=== PATIENT | female | born 1960 | race Caucasian/White ===

== ENCOUNTER 2021-01-23 12:31 | Outpatient (CLI) | payer BC, SELFPAY ==
--- NOTE | ~2021-01-23 | XR_ITS ---
XR knee RT min 4V 01/23/2021 13:07 Indication: Right knee pain Procedure: 4 views right knee Comparison: No prior studies for comparison. Findings: There is severe tricompartment osteoarthritis of the right knee. Small joint effusion. No a cute fracture or traumatic malalignment. Impression: 1: Severe osteoarthritis of the right knee. Reviewed, dictated and finalized at location A. PULLER Impression: 1: Severe osteoarthritis of the right knee.
--- NOTE | ~2021-01-23 | XR_ITS ---
XR knee LT min 4V 01/23/2021 13:07 Indication: Left knee pain Procedure: 4 views left knee Comparison: No prior studies for comparison. Findings: There is severe osteoarthritis of the left knee. No acute fracture, subluxation or dislocat ion. No significant joint effusion. No foreign bodies. Impression: 1: Severe osteoarthritis of the left knee. Reviewed, dictated and finalized at location A. NCT FACULTY MATHEMATICS DEPARTMENT Impression: 1: Severe osteoarthritis of the left knee.
== END 2021-01-23 12:32 | disposition home or self-care (01) ==
LOC: ANHIMG 12:36
PROVIDERS: PCP Internal Medicine; Visit Provider Neurological Surgery
DX: M17.0 Bilateral primary osteoarthritis of knee (principal)
CPT/HCPCS: 73564

== ENCOUNTER 2021-05-05 16:13 | Outpatient (CLI) | payer BC, SELFPAY ==
--- NOTE | ~2021-05-05 | MM_ITS ---
EXAMINATION: MM screening erika BI w jarrod HISTORY: Screening mammogram TECHNIQUE: Craniocaudal and mediolateral oblique 3-D tomosynthesis images were obtained and synthetic 2-D images were generated. CAD analysis was submitted and interpreted. COMPARISON: 03/04/2005 left mammogram and 02/17/2005 bilateral screening mammogram BREAST PARENCHYMAL COMPOSITION: The breasts are almost entirely fatty. FINDINGS: There is a focal small area of architectural distortion associated with a surgical clip in the inner aspect of the upper outer quadrant left breast due to prior surgical resection of breast ma lignancy. Status post left axillary node dissection. There is no evidence of suspicious mass, calcification, or architectural distortion to suggest malign john in either breast. There has been no suspicious interval change. IMPRESSION: 1. No mammographic evidence of malignancy; status post left partial mastectomy and left axillary node dissection for prior breast cancer. 2. Recommend routine screening mammography in one year. BI-RADS Category 2: Benign finding(s). Reviewed, dictated and finalized at location A. SICHORD MAKER
== END 2021-05-05 16:14 | disposition home or self-care (01) ==
LOC: ANHIMG 16:16
PROVIDERS: PCP Internal Medicine; Visit Provider Internal Medicine
DX: Z12.31 Encounter for screening mammogram for malignant neoplasm of breast (principal)
CPT/HCPCS: 77063; 77067

== ENCOUNTER 2022-05-27 07:40 | Outpatient (CLI) | payer BC, SELFPAY ==
--- NOTE | ~2022-05-27 | DEXA_ITS ---
Bone Density Report Name: JHONATAN CLARK Age: 61 Sex: Female Ethnicity: White Date of : 1960 Indication: postmenopausal; screening for osteoporosis; height loss; cancer; hysterectomy; Referring Provider: HANNAH, RAKESH Calderon Study: Bone densitometry was performed. Exam Date: May 27, 2022 Accession number: [id number] Bone Density: Region BMD T-score Z-score Classification AP Spine(L1-L4) 1.074 0.2 1.6 Normal Femoral Neck (Left) 0.740 -1.0 0.3 Normal Total Hip (Left) 1.046 0.9 1.8 Normal Femoral Neck (Right) 0.788 -0.5 0.7 Normal Total Hip (Right) 1.077 1.1 2.0 Normal Total Hip Mean 1.061 1.0 1.9 Normal World Health Organization criteria for BMD impression classify patients as: Normal (T-score at or above -1.0), Osteopenia (T-score between -1.0 and -2.5), or Osteoporosis (T-score at or below -2.5). 10-year Fracture Risk: FRAX not reported because: All T-scores for Spine Total, Hip Total, Femoral Neck at or above -1.0 Clinical Information Provided by Patient: Smokes Has the following medical conditions: Cancer, Hysterectomy Patient maximum height was 62 Menopause Age: 51 No regular weight bearing exercise Does not regularly consume dairy products Drinks caffeinated beverages Onset of menses at age 12 Number of children 0 Impression: The patient has normal bone mass. The patient has risk factors, including: smoking. Discussion: BONE DENSITY IS ABOVE THE MINIMUM DESIRABLE LEVEL AT ALL SKELETAL SITES TESTED. This patient?s bone mineral density is above the minimum desirable level (T-score -1.0 or better) at all sites measured. The patient should follow a healthful lifestyle (good nutrition with adequate calcium and vitamin D, and appropriate weight-bearing exercise). Follow-Up: Consider repeating this study in 5 years or sooner if there is some new clinical indication. Reported by: ISIS on 05/27/2022 8:18:00 AM. Reviewed, dictated and finalized at location AAmerico HOLDER
== END 2022-05-27 07:41 | disposition home or self-care (01) ==
PROVIDERS: PCP Internal Medicine; Visit Provider Internal Medicine
DX: Z78.0 Asymptomatic menopausal state (principal)
CPT/HCPCS: 77080

== ENCOUNTER 2023-09-12 13:10 | Outpatient (CLI) | payer BC, SELFPAY ==
--- NOTE | ~2023-09-12 | MM_ITS ---
EXAMINATION: MM screening erika BI w jarrod HISTORY: Screening mammogram TECHNIQUE: Craniocaudal and mediolateral oblique 3-D tomosynthesis images were obtained and synthetic 2-D images were generated. CAD analysis was submitted and interpreted. COMPARISON: 05/05/2021 BREAST PARENCHYMAL COMPOSITION:Not Dense. The breasts are almost entirely fatty FINDINGS: No suspicious mass, calcification, or architectural distortion are identified in either hina ast to suggest malignancy. There has been no suspicious interval change. IMPRESSION: No mammographic evidence of malignancy. Recommend routine screening mammography in one year. BI-RADS Category 1: Negative Reviewed, dictated and finalized at location .
== END 2023-09-12 13:11 | disposition home or self-care (01) ==
LOC: ANHIMG 13:14
PROVIDERS: PCP Internal Medicine; Visit Provider Obstetrics & Gynecology
DX: Z12.31 Encounter for screening mammogram for malignant neoplasm of breast (principal)
CPT/HCPCS: 77063; 77067

== ENCOUNTER 2024-02-01 15:50 | Outpatient (CLI) | payer BC, SELFPAY ==
--- NOTE | ~2024-02-01 | XR_ITS ---
EXAMINATION: XR hip RT 2V w AP pelvis DATE: 02/01/2024 16:25 INDICATION: Right hip pain. TECHNIQUE: An anteroposterior view of the pelvis and 2 views of right hip were obtained. COMPARISON: None. FINDINGS: There is 5 degrees dextrocurvature of lumbar spine. No fracture. There is mild osteoarthrit is of the hips. IMPRESSION: 1. Mild osteoarthritis of the hips. Reviewed, dictated and finalized at location A. TUTOR
--- NOTE | ~2024-02-01 | XR_ITS ---
EXAMINATION: XR knee RT 3V DATE: 02/01/2024 16:25 INDICATION: Right knee pain. TECHNIQUE: 3 views of right knee were obtained. COMPARISON: Right knee radiographs 01/23/2021 FINDINGS: There is varus angulation at the knee. No fracture. There is severe tricompartmental osteoa rthritis. No knee joint effusion. IMPRESSION: 1. Severe right knee osteoarthritis. Reviewed, dictated and finalized at location A. SISTOR TESTER
== END 2024-02-01 15:51 | disposition home or self-care (01) ==
LOC: ANHIMG 15:54
PROVIDERS: PCP Internal Medicine; Visit Provider Internal Medicine
DX: M16.0 Bilateral primary osteoarthritis of hip (principal); M17.11 Unilateral primary osteoarthritis, right knee
CPT/HCPCS: 73502; 73562

== ENCOUNTER 2025-01-11 14:34 | Outpatient (CLI) | payer BC, SELFPAY ==
--- OUTSIDE RECORDS SUMMARY | 2009-12-04 10:45 | XMS_ITS | Continuity of Care Document ---
Author Organization [facility] Address [address] [place] [address] Phone Care Team Providers Care Meteorological Engineer Name Role Phone Castañeda OD, Issa Unavailable Unavailable Procedures Procedure Date Office/outpatient Visit, [facility] Advance Directives Directive Yes / No Effective Date File Name No Information Encounters Encounter Description Practice Location Reason(s) For Visit Diagnoses Date Provider Providers Copied on Encounter Office/outpat ient Visit, [facility], [address], [place], [place], [id number], [place] tel:[phone] [facility] No Information [phone] Castañeda OD Issa. [address] , [address], [place], [address], [place]. tel:[phone] Family History Family Member Type Diagnosis Age At Onset No Information Payers Payer name Insurance type Covered alliance party ID Authoriza tisabino(s) [facility] Commercial CI [id number] Social History Type Description Quantity Date Captured Comments Sex Male Smoking Status No Information Chief Complaint And Reason For Visit No Information Reason For Referral Reason For Referral No Information History Of Present Illness Encounter Date Complaint History Of Prese nt Illness No Information Functional Status Date Functional Assessmen t No Information Instructions Date Instruction Additional Infor mation No Information Assessments Type Assessment Date No Information Patient Care Teams Name Effective Dates (start - stop) Status Members No Information
--- NOTE | ~2025-01-11 | MM_ITS ---
EXAMINATION: MM screening [facility] BI w jarrod HISTORY: Screening TECHNIQUE: Craniocaudal and mediolateral oblique 3-D tomosynthesis images were obtained and synthetic 2-D images were generated. CAD analysis was submitted and interpreted. COMPARISON: Comparison to multiple prior studies sequentially, with oldest reviewed study dated 05/05/2021. BREAST PARENCHYMAL COMPOSITION: Not dense: There are scattered areas of fibroglandular density. FINDINGS: There is no evidence of suspicious mass, calcification, or architectural distortion to suggest malignancy in either breast. There has been no suspicious interval change. IMPRESSION: 1. No mammographic evidence of malignancy. 2. Recommend routine screening mammography in one year. BI-RADS Category 1: Negative Reviewed, dictated and finalized at location B.
--- OUTSIDE RECORDS SUMMARY | 2025-01-11 14:38 | XMS_ITS | Clinical Summary ---
Author Organization [employer] Administrative Offices Address [address] [place] [address] Care Team Providers Care Chemical Blender Name Role Phone Uriel Jain MD Primary Care Provider [phone] Allergies Active Allergy Reactions Criticality Noted Date Comments Morphine Hypotension High 09/23/2016 Medications cholecalcifer ol, Vitamin D3, (VITAMIN D3) 2,000 unit Tablet Take 2,000 Units by mouth daily. Active cholecalcifer ol 50,000 unit Capsule Take by mouth every 7 days. Active CYANOCOBALAMI N, VITAMIN B-12, ORAL Take by mouth. Acti ve olmesartan (BENICAR) 20 mg tablet olmesartan 20 mg tablet Active cetirizine (ZyrTEC) 10 mg tablet every 24 hours. Acti ve citalopram (CeleXA) 20 mg tablet citalopram 20 mg tablet Active MELOXICAM ORAL Take 1 Tablet by mouth daily. Active clobetasoL (TEMOVATE) 0.05 % Ointment Apply to affected area see administration instructions. 06/30/19 24 Active mupirocin calcium (BACTROBAN) 2 % Cream Apply to affected area 2 times daily. 15 Gram 1 09/20/19 24 Active traMADoL (ULTRAM) 50 mg tablet Take 1 Tablet by mouth every 6 hours. 01/31/20 24 Active fluticasone propion-salme teroL (ADVAIR DISKUS,WIXELA INHUB) 250-50 mcg/dose disk inhaler Take 1 Puff by inhalation 2 times daily. 180 Each 3 02/20/20 24 Active albuterol sulfate HFA 90 mcg/actuation aerosol inhaler TAKE 2 PUFFS BY MOUTH EVERY 6 HOURS NEEDED FOR SHORTNESS OF BREATH 8.5 Gram 2 12/27/19 25 Active albuterol sulfate HFA 90 mcg/actuation aerosol inhaler Take 2 Puffs by inhalation every 6 hours as needed for Shortness of Breath. 8.5 Gram 3 12/02/19 24 2024 Discontinued Active Problems Patient Care Coordination No te Formatting of this note migh t be different from the original. Primary Care: Uriel Jain MD Referring Provider: Uriel Jain MD [address] [facility] [address] [place] [address] Other: Problem Noted Date Diagnosed Date Cellulitis of right breast 09/20/2023 History of left breast cancer 09/20/2023 History of partial mastectomy, left 09/20/2023 Tobacco abuse counseling 09/20/2023 Morbid obesity with BMI of 40.0-44.9, adult 07/2015 Asthma 10/18/2008 Depression 10/18/2008 Sinus infection 10/18/2008 Breast cancer 10/18/2008 Overview (11/03/2012): 03/31/05 Stage I ( T1c N0 Mx) IDC LEFT breast ER90% PR34% HER2/darlene - Ki67 11% S/p lumpectomy and SLND s/p TC x 4 09/16/05 Radiation complete 10/14/05 TMXx 5 years She is status post MAXIMO/BSO. 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 Assessment & Plan (10/23/2009 11:28 AM CDT): Mammogram in Feb 14 1/2 yrs from dx On TMX 4 yrs - last MP during chemo Lost 9 pounds; with double pneumonia ROV 1 year adn talk abotu femara Assessment & Plan (10/21/2008 11:39 AM CDT): Here for yearly f/u. Is going to buy a motorcycle and get a tatoo! Exam - sore under L axilla; ?cyst over rib? Never had staging studies PLAN: CTs and bone scan. Mammogram with [facility] in February. ROV 1 year Check labs. Resolved Problems Problem Noted Date Diagnosed Date Resolved Date Inflammatory disease of breast 06/30/2010 04/12/2014 Infected sebaceous cyst- rt breast 06/23/2010 04/12/2014 Encounters Date Type Department Care Team Description 12/26/2024 [facility] Pulmonology [address] [place] [id number] Irving Varela MD 11/13/2024 External Device Data STL ABSTRACTION Provider, Abstract 10/31/2024 External Device Data STL ABSTRACTION Provider, Abstract 10/17/2024 External Device Data STL ABSTRACTION Provider, Abstract from Last 3 Months Immunizations Immunization Administration Dates Next Due Influenza Seasonal Unspecifi ed Formulation IM 11/13/2019,11/12/2018,11/12/2017,2016,01/13/2016 Family History Medical History Relation Name Comments Asthma Brother Hypertension Maternal Grandmother Asthma Mother Bronchitis Mother Healthy Mother Cancer Paternal Aunt Cancer Paternal Grandfather Diabetes Paternal Grandmother Breast Cancer Neg Hx Emphysema Neg Hx Heart Failure Neg Hx Lung Cancer Neg Hx Mesothelioma Neg Hx Ovarian Cancer Neg Hx Relation Name Status Comments Brother Father Maternal Grandmother Mother Alive Paternal Aunt Paternal Grandfather Paternal Grandmother Social History Tobacco Use Types Packs/Day Years Used Date Smoking Tobacco: Former Cigarettes 0.5 25 0 06/22/1985 - 06/22/2010 Smokeless Tobacco: Never Tobacco Cessation:Counseling Given: Not Answered Alcohol Use Standard Drinks/Week Comments Yes 0 (1 standard drink = 0.6 oz pur e alcohol) Feeling Safe Answer Date Recorded Fear of Current or Ex-Partner Not on file Emotionally Abused Not on file 09/20/2023 Within the last year, have y ou been kicked, hit, slapped, or otherwise physically hurt by your partner or ex-partner? No 09/20/2023 Sexually Abused Not on file 09/20/2023 Comments No Sex and Gender Information Value Date Recorded Sex Assigned at Female 09/14/2023 1:00 PM CDT Legal Sex Female 5:39 AM PHYSICAL SECURITY SPECIALIST Gender Identity Female 09/14/2023 1:00 PM CDT Sexual Orientation Pansexual 09/14/2023 1: 00 PM CDT Occupation Industry Job Start Date Job End Date Not on file Not on file Not on file Not on file Last Filed Vital Signs Vital Sign Reading Time Taken Comments Blood Pressure 128/84 02/20/2024 12:58 PM PHYSICAL SECURITY SPECIALIST Pulse 79 02/20/2024 12:58 PM PHYSICAL SECURITY SPECIALIST Temperature 36.9 C (98.5 F) 11/06/2019 12:49 PM CDT Respiratory Rate 16 02/06/2020 11:0 7 AM PHYSICAL SECURITY SPECIALIST Oxygen Saturation 97% 02/20/2024 12: 58 PM PHYSICAL SECURITY SPECIALIST ra Inhaled Oxygen Concentration - - Weight 132.4 kg (291 lb 12.8 oz) 2023 12:58 PM PHYSICAL SECURITY SPECIALIST Height 157.5 cm (5' 2) 02/20/2024 12:5 8 PM PHYSICAL SECURITY SPECIALIST Body Mass Index 53.37 02/20/2024 12:58 PM PHYSICAL SECURITY SPECIALIST Plan of Treatment Upcoming Encounters Date Type Department Care Team (Late st Contact Info) Description 02/25/2025 1:15 PM PHYSICAL SECURITY SPECIALIST Office Visit [facility] Pulmonology [facility] [address] [place] [address] [address] [place] [address] Irving Varela MD [address] [place] [address] Health Maintenance Due Date Last Done Comments Pre-Diabetes and Diabetes Screening 1960 FIT-DNA Q 3 years 10/11/2007 FIT/FOBT Q 1 year 10/11/2007 Flex Sig/CT Colonography Q 5 years 10/11/2007 RSV VACCINE (60+ or ) (1 - Risk 50-74 years 1-dose series) 2012 ZOSTER VACCINE (1 of 2) 2012 DTAP/TDAP/TD VACCINES (2 - T d or Tdap) 07/12/2023 07/11/2013 BREAST CANCER SCREENING 09/11/2024 09/12/19 24, 09/17/2019, 09/10/2019, Additional history exists INFLUENZA VACCINE (#1) 2024 1, 12/18/2019, 11/13/2019, Additional history exists COLORECTAL SCREENING 03/17/2027 03/17/2017, 12/06/19 12 Colorectal Cancer Screening 03/17/2027 Procedures Procedure Name Priority Date/Time Associated Diagnosis Comments MAMMO SCREENING BILAT Routine 09/12/2023 10:33 AM CDT COLONOSCOPY REPORT Routine 03/17/2017 from Last 3 Months or Most Recently Relevant to Health Maintenance Results * MAMMO SCREENING BILAT (09/12/2023 10:33 AM CDT) Anatomical Region Laterality Modality Breast Bilateral Mammography us Abstract Provider MAMMO ORDERABLES Final Result * COLONOSCOPY REPORT (03/17/2017) us Cristofer Cardoza MD GI PROCEDURE ORDERA BLES Edited Result - Final [facility] from Last 3 Months or Most Recently Relevant to Health Maintenance Insurance [employer] Care Teams Chemical Blender Relationship Specialty Start Date End Date Uriel Jain MD [address] [phone] PCP - General Internal Medicine 03/23/11
--- OUTSIDE RECORDS SUMMARY | 2025-01-11 14:38 | XMS_ITS ---
Author Organization [employer] Administrative Offices Address [address] [place] [address] Care Team Providers Care Pipelines Laborer Name Role Phone Uriel Jain MD Primary Care Provider [phone] Active Problems Patient Care Coordination No te Formatting of this note migh t be different from the original. Primary Care: Uriel Jain MD Referring Provider: Uriel Jain MD [address] [address] Other: Problem Noted Date Diagnosed Date Cellulitis of right breast 09/20/2023 History of left breast cancer 09/20/2023 History of partial mastectomy, left 09/20/2023 Tobacco abuse counseling 09/20/2023 Morbid obesity with BMI of 40.0-44.9, adult 02/0 07/2015 Asthma 10/18/2008 Depression 10/18/2008 Sinus infection [...] Mar Cyst on back - out this weds Assessment & Plan (10/28/2011 11:25 AM CDT): 6 1/2 years out Mammo in [place] Had MAXIMO/BSO for fibroids ROV 1 year Assessment & Plan (10/27/2010 11:22 AM CDT): 5 1/2 years out On TMX 5 years' 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 Assessment & Plan (10/23/2009 11:28 AM CDT): Mammogram in Feb 4 1/2 yrs from dx On TMX 4 [...] PLAN: CTs and bone scan. Mammogram with [facility] in February. ROV 1 year Check labs. Current Treatment and Therapy Plans No current plan information found. Past Treatment and Therapy Plans No past plan information found. Lifetime Dose Tracking * Chemical Lifetime Dose Automatic Entry Manual Entr y Effective Dose 9.21 mSv 9.21 mSv 0 mSv Total DLP 452.11 DLP 452.11 DLP 0 DLP CTDIvol Max 37.6 mGy 37.6 mGy 0 mGy CTDIvol Min 10 mGy 10 mGy 0 mGy Resolved Problems Problem Noted Date Diagnosed Date Resolved Date Inflammatory disease of breast 06/30/2010 04/12/2014 Infected sebaceous cyst- rt breast 06/23/2010 04/12/2014
--- OUTSIDE RECORDS SUMMARY | 2025-01-11 14:39 | XMS_ITS | Encounter Summary ---
Author Organization [facility] Address [address] [place] [address] Care Team Providers Care Highway Painter Helper Name Role Phone Uriel Jain MD Primary Care Provider [phone] Encounter Details Date Type Department Care Team (Late st Contact Info) Description 10/21/2008 Outpatient Historical [facility], [address] Karly Gil MD [address] [place] [address] [place] [phone] Malignant Neoplasm of Breast (Female), Unspecified Site (CMS/HCC) Social History Tobacco Use Types Packs/Day Years Used Date Smoking Tobacco: Every Day Cigarettes 0.5 25 Alcohol Use Standard Drinks/Week Comments Yes 0 (1 standard drink = 0.6 oz pur e alcohol) Comments No Sex and Gender Information Value Date Recorded Sex Assigned at Female 09/14/2023 1:00 PM CDT Legal Sex Female 5:39 AM LIVESTOCK PRODUCER Gender Identity Female 09/14/2023 1:00 PM CDT Sexual Orientation Pansexual 09/14/2023 1: 00 PM CDT documented as of this encounter Plan of Treatment Upcoming Encounters Date Type Department Care Team (Late st Contact Info) Description 02/25/2025 1:15 PM LIVESTOCK PRODUCER Office Visit [facility] Pulmonology [place] [id number] [place] [address] Irving Varela MD [address] [place] [address] documented as of this encounter Visit Diagnoses Diagnosis Malignant neoplasm of breast (female), unspecified site documented in this encounter Care Teams Highway Painter Helper Relationship Specialty Start Date End Date Uriel Jain MD [address] [phone] PCP - General Internal Medicine 03/23/11 documented as of this encounter
--- OUTSIDE RECORDS SUMMARY | 2025-01-11 14:39 | XMS_ITS | Clinical Summary ---
Author Organization [facility] Address [address] [place] [address] Care Team Providers Care Soap Drier Operator Name Role Phone Unavailable Primary Care Provider Unavailabl e Source Comments [facility],non-owned Affiliates and Associated Physician Practices is amultiple site organization consisting of ambulatory clinics and hospital sitesin [place], [place], [place] and [place]. This disclosure is being madepursuant to the Care Everywhere program and may not contain all information available regarding this patient. Last updated 17.[facility] [employer] Allergies No known active allergies Medications * Be aware that medications may not be up to date on this document. Alwaysverify current medications with the patient. vitamin D, ergocalciferol, (DRISDOL) 32878 UNIT capsule Take 50,000 Units by mouth every 7 days. Active ferrous sulfate 325 (65 FE) MG tablet Take 325 mg by mouth daily with food. Active oxycodone-acetam inophen (PERCOCET) 5-325 MG tablet Take 1-2 Tabs by mouth every 6 hours as needed. 30 Tab 0 04/27/2011 Active ibuprofen (MOTRIN) 600 MG tablet Take 1 Tab by mouth every 6 hours as needed. 60 Tab 0 04/27/2011 Active docusate sodium (COLACE) 100 MG capsule Take 1 Cap by mouth once daily as needed for Constipatio n. 30 Cap 3 04/27/2011 Active Active Problems No known active problems Family History Medical History Relation Name Comments Breast Cancer after age 50 or unknown Maternal Grandmo ther Diabetes Paternal Grandmother Relation Name Status Comments Maternal Grandmother Paternal Grandmother Social History Tobacco Use Types Packs/Day Years Used Date Smoking Tobacco: Every Day Cigarettes Tobacco Cessation:Ready to Q uit: No; Counseling Given: Yes Alcohol Use Standard Drinks/Week Comments Yes 0 (1 standard drink = 0.6 oz pur e alcohol) OCCASIONAL Comments No Sex and Gender Information Value Date Recorded Sex Assigned at Not on file Legal Sex Female 1:03 PM LABOR SUPERVISOR Gender Identity Not on file Sexual Orientation Not on file Last Filed Vital Signs Vital Sign Reading Time Taken Comments Blood Pressure 103/61 04/27/2011 9:47 AM LABOR SUPERVISOR Pulse 58 04/27/2011 9:47 AM LABOR SUPERVISOR Temperature 36.7 C (98 F) 04/27/2011 9:47 AM LABOR SUPERVISOR Respiratory Rate 20 04/27/2011 9:47 AM LABOR SUPERVISOR Oxygen Saturation 98% 04/27/2011 9:47 AM LABOR SUPERVISOR Inhaled Oxygen Concentration - - Weight 126.1 kg (278 lb) 04/26/2011 7:34 AM LABOR SUPERVISOR Height 157.5 cm (5' 2) 04/26/2011 7:34 AM LABOR SUPERVISOR Body Mass Index 50.85 04/26/2011 7:34 AM LABOR SUPERVISOR Plan of Treatment Health Maintenance Due Date Last Done Comments COLOGUARD (AGES 45-75) - COL ON CA SCREENING 1960 COLON MONITORING 1962 COLONOSCOPY - COLON CA SCREENING 1962 CT COLONOGRAPHY - COLON CA SCREENING 1960 Colorectal Cancer Screening 1960 FIT - COLON CA SCREENING 1962 FLEX SIG - COLON CA SCREENING 1962 LIPID TESTING 1962 MAMMOGRAM 1962 HIV SCREENING 1977 HEPATITIS C SCREENING 10/05/1980 DTAP/TDAP/TD VACCINES (1 - Tdap) 1981 PNEUMOCOCCAL VACCINE 50+ (1 of 1 - PCV) 2012 ZOSTER VACCINE (1 of 2) 2012 DEPRESSION SCREENING 03/14/2024 COVID-19 VACCINE (1 - 2023-2 5 season) 2024 INFLUENZA VACCINE (#1) 2024 Respiratory Syncytial Virus (RSV) Vaccine Pt: or over 60 yrs (1 - 1-dose 75+ series) 2037 HEPATITIS B VACCINE Aged Out No longe r eligible based on patient's age to complete this topic HIB VACCINE Aged Out No longer eligi ble based on patient's age to complete this topic HPV VACCINE Aged Out No longer eligi ble based on patient's age to complete this topic MENINGOCOCCAL (Group B) VACC INE SHARED DECISION-MAKING Aged Out No longer eligibl e based on patient's age to complete this topic MENINGOCOCCAL GROUPS A/C/Y/W VACCINE Aged Out No longer eligible b ased on patient's age to complete this topic Advance Directives * FULL RESUSCITATION (Latest Code Status on File) Date Activated Date Inactivated Comments 04/26/2011 2:32 PM 04/28/2011 2:16 AM
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
--- OUTSIDE RECORDS SUMMARY | 2025-01-11 14:39 | XMS_ITS | Encounter Summary ---
Author Organization [facility] Address [address] [place] [address] Care Team Providers Care Plant Production Manager Name Role Phone Uriel Jain MD Primary Care Provider [phone] Encounter Details Date Type Department Care Team (Late st Contact Info) Description 11/05/2008 Outpatient Historical [facility] Marichuy Velez MD [address] [place] [address] [place] [address] Malignant Neoplasm of Breast (Female), Unspecified Site (CMS/HCC) Social History Tobacco Use Types Packs/Day Years Used Date Smoking Tobacco: Every Day Cigarettes 0.5 25 Alcohol Use Standard Drinks/Week Comments Yes 0 (1 standard drink = 0.6 oz pur e alcohol) Comments No Sex and Gender Information Value Date Recorded Sex Assigned at Female 09/14/2023 1:00 PM CDT Legal Sex Female 5:39 AM MITTEN STITCHER Gender Identity Female 09/14/2023 1:00 PM CDT Sexual Orientation Pansexual 09/14/2023 1: 00 PM CDT documented as of this encounter Plan of Treatment Upcoming Encounters Date Type Department Care Team (Late st Contact Info) Description 02/25/2025 1:15 PM MITTEN STITCHER Office Visit [facility] Pulmonology [place] [address] [place] [address] Irving Varela MD [address] [place] [address] documented as of this encounter Procedures Procedure Name Priority Date/Time Associated Diagnosis Comments NM BONE SCAN WHOLE BODY Routine 11/05/2008 2:[address] CHEST ABDOMEN PELVIS W CONT Routine 11/05/2008 10:40 AM CDT documented in this encounter Results * NM BONE SCAN WHOLE BODY (11/05/2008 2:28 PM CDT) Anatomical Region Laterality Modality Other 11/05/2008 2:28 PM CDT Narrative 11/05/2008 2:35 PM CDT [address] [address] Admit Date: 11/05/2008 MELBA CLARK Sex: F Admit Prov: IVAMARICHUY VAUGHAN Date: 1960 Primary Care Prov: SUDHEER, BILLIE CMRN: [id number] Room: [facility] SSN: [id number] IMAGING SERVICES Ordering Prov: N/A Accession Number: [id number] Interpretation Whole-body bone scan History: Restaging of breast cancer. Procedure: 32.8 mCi 99m-Tc MDP with anterior and posterior whole body images obtained at 3 hours. Findings: The kidneys are well visualized. Urinary contamination of the genitalia. Moderate degenerative changes of the knees and feet. Mild degenerative changes at the thoracic spine. No osseous metastatic disease. Periodontal disease. IMPRESSION: No osseous metastatic disease. Degenerative changes as noted. . Dictated by: MIRI RESENDIZ 11/05/2008 14:33 Electronically signed by: MIRI RESENDIZ 11/05/2008 14:34 Procedure Note Miri Resendiz MD - 11/05/[address] [address] Admit Date: 11/05/2008 MELBA CLARK Sex: F Admit Prov: AGUSTINTYChris Garcia Date: 1960 Primary Care Prov: PCP, UNKNOWN CMRN: [id number] Room: [facility] SSN: [id number] IMAGING SERVICES Ordering Prov: N/A Interpretation Whole-body bone scan History: Restaging of breast cancer. Procedure: 32.8 mCi 99m-Tc MDP with anterior and posterior wholebody images obtained at 3 hours. Findings: The kidneys are well visualized. Urinary contamination ofthe genitalia. Moderate degenerative changes of the knees and feet.Mild degenerative changes at the thoracic spine. No osseous metastaticdisease. Periodontal disease. IMPRESSION: No osseous metastatic disease. Degenerative changes asnoted. . Dictated by: MIRI RESENDIZ 11/05/2008 14:33 Electronically signed by: MIRI RESENDIZ 11/05/2008 14:34 Marichuy Velez MD NC ORDERABLES Final Resul t * CT CHEST ABDOMEN PELVIS W CONT (11/05/2008 10:40 AM CDT) Anatomical Region Laterality Modality Chest Other 11/05/2008 10:4 0 AM CDT Narrative 11/06/2008 4:38 PM CDT [facility] [place] [address] [place], [place] [address] Admit Date: 11/05/2008 MELBA CLARK Sex: F Admit Prov: MARICHUY VELEZ Date: 1960 Primary Care Prov: PCP, UNKNOWN CMRN: [id number] Room: [facility] SSN: [id number] IMAGING SERVICES Ordering Prov: N/A Accession Number: [id number] Interpretation CT CHEST, ABDOMEN AND PELVIS WITH INTRAVENOUS CONTRAST, 11/05/2008 HISTORY: 174.9, breast cancer. TECHNIQUE: Helical images through the chest, abdomen and pelvis following intravenous contrast administration. FINDINGS: No infiltrate, effusion or pneumothorax is present. There is no pulmonary mass or nodule. There is a calcified granuloma in the right upper lobe. The heart and mediastinum are normal. The aorta enhances normally. There is no axillary, hilar or mediastinal adenopathy. There is fatty infiltration of the liver. The gallbladder, spleen, pancreas, kidneys and adrenal glands are normal. There is no hydronephrosis, hydroureter, free intraperitoneal air, fluid or adenopathy. There is no bowel obstruction or inflammatory change. The uterus and appendix are normal. IMPRESSION: 1. Fatty infiltration of the liver. 2. No metastatic disease. . Dictated by: RAVINDER BURDICK 11/05/2008 11:49 Electronically signed by: RAVINDER BURDICK 11/06/2008 16:36 Transcribed: 11/05/2008 15:13 DKT Procedure Note Ravinder Burdick MD - 11/06/2008 [facility] [place] [address] [place], [place] [address] Admit Date: 11/05/2008 MELBA CLARK Sex: F Admit Prov: MARICHUY VELEZ Date: 1960 Primary Care Prov: PCP, UNKNOWN CMRN: [id number] Room: [facility] SSN: [id number] IMAGING SERVICES Ordering Prov: N/A Interpretation CT CHEST, ABDOMEN AND PELVIS WITH INTRAVENOUS CONTRAST, 11/05/2008 HISTORY: 174.9, breast cancer. TECHNIQUE: Helical images through the chest, abdomen and pelvisfollowing intravenous contrast administration. FINDINGS: No infiltrate, effusion or pneumothorax is present. Thereis no pulmonary mass or nodule. There is a calcified granuloma in the rightupper lobe. The heart and mediastinum are normal. The aorta enhancesnormally. There is no axillary, hilar or mediastinal adenopathy. There is fatty infiltration of the liver. The gallbladder, spleen, pancreas, kidneys and adrenal glands are normal. There is no hydronephrosis, hydroureter, free intraperitoneal air, fluid oradenopathy. There is no bowel obstruction or inflammatory change. The uterusand appendix are normal. IMPRESSION: 1. Fatty infiltration of the liver. 2. No metastatic disease. . Dictated by: RAVINDER BURDICK 11/05/2008 11:49 Electronically signed by: RAVINDER BURDICK 11/06/2008 16:36 Transcribed: 11/05/2008 15:13 DKT Marichuy Velez MD CT ORDERABLES Final Resul t documented in this encounter Visit Diagnoses Diagnosis Malignant neoplasm of breast (female), unspecified site documented in this encounter Care Teams Plant Production Manager Relationship Specialty Start Date End Date Uriel Jain MD [address] [id number] PCP - General Internal Medicine 03/23/11 documented as of this encounter
== END 2025-01-11 14:35 | disposition home or self-care (01) ==
LOC: ANHFOHIMG 14:36
PROVIDERS: PCP Internal Medicine
DX: Z12.31 Encounter for screening mammogram for malignant neoplasm of breast (principal)
CPT/HCPCS: 77063; 77067